=== PATIENT | female | born 1930 | race Caucasian/White ===

== ENCOUNTER → 2016-09-01 | Outpatient (CLI) | payer MEDICARE, OTHER ==
[~2016-09-01] MED LIST: ASPIRIN 32325 MG/TAB PO; HCTZ 25MG25 MG PO
== END ==
LOC: LAB 14:43
DX: N30.00 Acute cystitis without hematuria (principal)

== ENCOUNTER → 2016-09-03 | Outpatient (CLI) | payer MEDICARE, OTHER | LOC: LAB 14:05 | DX: N30.00 Acute cystitis without hematuria (principal) ==

== ENCOUNTER → 2016-09-20 | Outpatient (CLI) | payer MEDICARE, OTHER | LOC: LAB 12:01 | DX: N30.00 Acute cystitis without hematuria (principal); B96.20 Unspecified Escherichia coli [E. coli] as the cause of diseases classified elsewhere ==

== ENCOUNTER → 2016-10-03 | Outpatient (CLI) | payer MEDICARE, OTHER | LOC: LAB 13:42 | DX: N30.00 Acute cystitis without hematuria (principal) ==

== ENCOUNTER → 2016-10-06 | Outpatient (CLI) | payer MEDICARE, OTHER | LOC: LAB 15:23 | DX: R35.0 Frequency of micturition (principal) ==

== ENCOUNTER → 2016-10-10 | Outpatient (CLI) | payer MEDICARE, OTHER ==
[2016-10-10 15:43] VITALS: BP 193/79
== END ==
LOC: AMSURD 15:08
DX: R35.0 Frequency of micturition (principal); R39.89 Other symptoms and signs involving the genitourinary system; R10.2 Pelvic and perineal pain

== ENCOUNTER → 2017-02-27 | Outpatient (CLI) | payer MEDICARE, OTHER ==
[2016-10-10 15:43] VITALS: BP 193/79
== END ==
LOC: LAB 12:03
DX: N30.01 Acute cystitis with hematuria (principal)

== ENCOUNTER → 2018-05-18 | Outpatient (CLI) | payer MEDICARE, OTHER ==
[2016-10-10 15:43] VITALS: BP 193/79
[2018-05-18 15:05] LABS: EOS # 0.1 (0.04-0.40); EOS % 1.5 % (1.0-5.0); HEMATOCRIT 39.6 % (37.0-47.0); HEMOGLOBIN 13.1 g/dL (12.5-16.0); LYMPH# 2.3 (1.50-4.00); MEAN CELL VOLUME 95 fl (78-100); MEAN CORPUSCULAR HEMOGLOBIN 31 pg (27-31); MEAN CORPUSCULAR HGB CONC 33 g/dL (33-37); MEAN PLATELET VOLUME 11.5 fl (7.4-10.4); NEU # 6.2 (1.40-6.50); PLATELET COUNT 150 K/mm3 (130-400); RED BLOOD COUNT 4.17 M/mm3 (4.10-5.30); RED CELL DISTRIBUTION WIDTH 12.7 % (11.5-14.5); WHITE BLOOD COUNT 9.6 K/mm3 (4.8-10.8)
[2018-05-18 15:50] LABS: ALBUMIN 3.9 g/dL (3.5-5.0); CALCIUM 8.8 mg/dL (8.4-10.2); POTASSIUM 3.9 mmol/L (3.6-5.0); TOTAL BILIRUBIN 0.5 mg/dL (0.2-1.3); TOTAL PROTEIN 7.2 g/dL (6.3-8.2)
== END ==
LOC: LAB 14:39
PROVIDERS: Family Medicine
DX: Z01.419 Encounter for gynecological examination (general) (routine) without abnormal findings (principal); R73.9 Hyperglycemia, unspecified; E03.9 Hypothyroidism, unspecified; R30.0 Dysuria

== ENCOUNTER 2018-06-16 10:53 | Emergency (ER) | payer MEDICARE, OTHER ==
[2018-06-16] MEDS ORDERED: CRANBERRY200 MG PO (11:01)
[2018-06-16] MEDS ORDERED: PRILOSEC 20MG20 MG PO (11:01)
[2018-06-16 11:53] LABS: BASO # 0.1 (0.02-0.10); EOS # 0.6 (0.04-0.40); EOS % 6.9 % (1.0-5.0); HEMATOCRIT 36.7 % (37.0-47.0); HEMOGLOBIN 12.2 g/dL (12.5-16.0); LYMPH# 2.1 (1.50-4.00); MEAN CELL VOLUME 93 fl (78-100); MEAN CORPUSCULAR HEMOGLOBIN 31 pg (27-31); MEAN CORPUSCULAR HGB CONC 33 g/dL (33-37); MEAN PLATELET VOLUME 11.7 fl (7.4-10.4); MONO # 0.8 (0.20-0.80); PLATELET COUNT 184 K/mm3 (130-400); RED BLOOD COUNT 3.94 M/mm3 (4.10-5.30); RED CELL DISTRIBUTION WIDTH 12.5 % (11.5-14.5); WHITE BLOOD COUNT 8.9 K/mm3 (4.8-10.8)
[2018-06-16 12:03] LABS: ALBUMIN 4.1 g/dL (3.5-5.0); CALCIUM 9.4 mg/dL (8.4-10.2); POTASSIUM 4.2 mmol/L (3.6-5.0); TOTAL BILIRUBIN 0.4 mg/dL (0.2-1.3); TOTAL PROTEIN 7.1 g/dL (6.3-8.2)
[2018-06-16 12:16] LABS: URINE APPEARANCE CLEAR; URINE BILIRUBIN NEGATIVE (NEGATIVE); URINE BLOOD TRACE (NEGATIVE); URINE COLOR YELLOW; URINE GLUCOSE NEGATIVE (NEGATIVE); URINE KETONE NEGATIVE (NEGATIVE); URINE LEUKOCYTE ESTERASE NEGATIVE (NEGATIVE); URINE NITRATE NEGATIVE (NEGATIVE); URINE PROTEIN(semi-quant) NEGATIVE (NEGATIVE); URINE UROBILINOGEN NORMAL (NORMAL)
[2018-06-16 15:20] VITALS: BP 129/69
== END 2018-06-16 15:20 | disposition home or self-care (01) ==
LOC: ED 10:53
PROVIDERS: Family Medicine
DX: E86.9 Volume depletion, unspecified (principal); R63.0 Anorexia; N95.2 Postmenopausal atrophic vaginitis; T38.5X6A Underdosing of other estrogens and progestogens, initial encounter; I10 Essential (primary) hypertension; E03.9 Hypothyroidism, unspecified; Z79.82 Long term (current) use of aspirin; M31.6 Other giant cell arteritis
CPT/HCPCS: J7030

== ENCOUNTER → 2018-10-02 | Outpatient (CLI) | payer MEDICARE, OTHER ==
[~2018-10-02] MED LIST changes: +CRANBERRY200 MG PO; +PRILOSEC 20MG20 MG PO
[2018-10-02 12:38] LABS: URINE APPEARANCE CLEAR; URINE COLOR YELLOW
[2018-10-02 12:39] LABS: URINE BILIRUBIN NEGATIVE (NEGATIVE); URINE BLOOD NEGATIVE (NEGATIVE); URINE GLUCOSE NEGATIVE (NEGATIVE); URINE KETONE NEGATIVE (NEGATIVE); URINE LEUKOCYTE ESTERASE NEGATIVE (NEGATIVE); URINE NITRATE NEGATIVE (NEGATIVE); URINE PROTEIN(semi-quant) TRACE mg/dL (NEGATIVE); URINE UROBILINOGEN NORMAL (NORMAL)
== END ==
LOC: LAB 11:37
PROVIDERS: Family Medicine
DX: N39.0 Urinary tract infection, site not specified (principal)

== ENCOUNTER 2018-10-12 14:35 | Outpatient (RCR) | payer MEDICARE | END 2018-10-12 15:00 | disposition home or self-care (01) | LOC: PT 14:35 | DX: R53.81 Other malaise (principal); G62.9 Polyneuropathy, unspecified ==

== ENCOUNTER → 2018-12-21 | Outpatient (CLI) | payer MEDICARE ==
[2018-12-21 16:16] LABS: EOS # 0.2 (0.04-0.40); EOS % 1.9 % (1.0-5.0); LYMPH# 2.3 (1.50-4.00); MEAN CELL VOLUME 95 fl (78-100); MEAN CORPUSCULAR HEMOGLOBIN 29 pg (27-31); MEAN CORPUSCULAR HGB CONC 31 g/dL (33-37); MONO # 0.8 (0.20-0.80); NEU # 4.5 (1.40-6.50); PLATELET COUNT 240 K/mm3 (130-400); RED BLOOD COUNT 4.12 M/mm3 (4.10-5.30); RED CELL DISTRIBUTION WIDTH 14.4 % (11.5-14.5); WHITE BLOOD COUNT 7.8 K/mm3 (4.8-10.8)
[2018-12-21 16:37] LABS: MEAN PLATELET VOLUME 12.1 fl (7.4-10.4)
[2018-12-21 16:42] LABS: ALBUMIN 3.8 g/dL (3.4-4.8); CALCIUM 9.3 mg/dL (8.3-10.5); POTASSIUM 3.9 mmol/L (3.5-5.1); TOTAL BILIRUBIN 0.5 mg/dL (0.2-1.2); TOTAL PROTEIN 7.1 g/dL (6.2-8.1); TROPONIN-I 0.03 ng/mL (<0.030)
[2018-12-21 17:15] LABS: D-DIMER 4.22 mg/L FEU (0.15-0.50)
== END ==
LOC: RAD 15:40 → LAB 15:40
PROVIDERS: Family Medicine
DX: I51.7 Cardiomegaly (principal); J90 Pleural effusion, not elsewhere classified; R06.09 Other forms of dyspnea
CPT/HCPCS: Q9967

== ENCOUNTER 2018-12-29 10:41 | Emergency (ER) | payer MEDICARE ==
[~2018-12-29] VITALS: Wt 89.9 kg
[2018-12-29] MEDS ORDERED: KEFLEX250 M1 PO (10:52)
[2018-12-29] MEDS ORDERED: FUROSEMIDE20 MG PO (10:52)
[2018-12-29 11:33] LABS: EOS # 0.2 (0.04-0.40); EOS % 2.1 % (1.0-5.0); HEMATOCRIT 37.2 % (37.0-47.0); HEMOGLOBIN 11.8 g/dL (12.5-16.0); LYMPH# 1.7 (1.50-4.00); MEAN CELL VOLUME 94 fl (78-100); MEAN CORPUSCULAR HEMOGLOBIN 30 pg (27-31); MEAN CORPUSCULAR HGB CONC 32 g/dL (33-37); MONO # 0.7 (0.20-0.80); NEU # 4.9 (1.40-6.50); PLATELET COUNT 203 K/mm3 (130-400); RED BLOOD COUNT 3.96 M/mm3 (4.10-5.30); RED CELL DISTRIBUTION WIDTH 14.1 % (11.5-14.5); WHITE BLOOD COUNT 7.6 K/mm3 (4.8-10.8)
[2018-12-29 11:35] LABS: MEAN PLATELET VOLUME 12.4 fl (7.4-10.4)
[2018-12-29 11:46] LABS: CALCIUM 9.3 mg/dL (8.3-10.5); POTASSIUM 3.8 mmol/L (3.5-5.1)
[2018-12-29 13:32] VITALS: BP 168/96
== END 2018-12-29 13:33 | disposition home or self-care (01) ==
LOC: ED 10:41
PROVIDERS: Family Medicine
DX: K72.90 Hepatic failure, unspecified without coma (principal); R16.0 Hepatomegaly, not elsewhere classified; E03.9 Hypothyroidism, unspecified; I10 Essential (primary) hypertension; M31.6 Other giant cell arteritis; Z90.89 Acquired absence of other organs; Z88.8 Allergy status to other drugs, medicaments and biological substances; Z79.82 Long term (current) use of aspirin

== ENCOUNTER 2019-01-31 16:05 | Emergency (ER) | payer MEDICARE ==
[~2019-01-31] VITALS: Ht 154.9 cm; Wt 84.1 kg
[~2019-01-31 16:05] MED LIST changes: -ALDACTONE 25MG25 MG PO; -ALTACE1.25 MG PO; +ASPIRIN 32325 MG/TAB PO; -ASPIRIN E.C. 8181 MG PO; -ATORVASTATIN CA20 MG PO; -CLOPIDOGREL PO; -COREG 3.123.125 MG/T PO; -ESTRACE0.1 MG/GM VG
[2019-01-31 17:13] LABS: EOS # 0.3 (0.04-0.40); EOS % 2.7 % (1.0-5.0); HEMATOCRIT 36.7 % (37.0-47.0); HEMOGLOBIN 11.8 g/dL (12.5-16.0); LYMPH# 2.2 (1.50-4.00); MEAN CELL VOLUME 93 fl (78-100); MEAN CORPUSCULAR HEMOGLOBIN 30 pg (27-31); MEAN CORPUSCULAR HGB CONC 32 g/dL (33-37); MONO # 0.8 (0.20-0.80); NEU # 5.7 (1.40-6.50); PLATELET COUNT 177 K/mm3 (130-400); RED BLOOD COUNT 3.96 M/mm3 (4.10-5.30); RED CELL DISTRIBUTION WIDTH 13.5 % (11.5-14.5); WHITE BLOOD COUNT 9.1 K/mm3 (4.8-10.8)
[2019-01-31 17:14] LABS: MEAN PLATELET VOLUME 12.8 fl (7.4-10.4)
[2019-01-31 17:16] LABS: ALBUMIN 3.9 g/dL (3.4-4.8)
[2019-01-31 17:17] LABS: POTASSIUM 4.6 mmol/L (3.5-5.1); SODIUM 138 mmol/L (136-145)
[2019-01-31 17:18] LABS: CALCIUM 9.7 mg/dL (8.3-10.5)
[2019-01-31 17:19] LABS: GLUCOSE 116 mg/dL (65-105); TOTAL PROTEIN 7.5 g/dL (6.2-8.1)
[2019-01-31 17:20] LABS: CARBON DIOXIDE 24 mmol/L (23-31)
[2019-01-31 17:21] LABS: TOTAL BILIRUBIN 0.5 mg/dL (0.2-1.2)
[2019-01-31 17:24] LABS: AST-SGOT 18 U/L (5-34)
[2019-01-31 17:25] LABS: ALT/SGPT 10 U/L (0-55)
[2019-01-31] MEDS ORDERED: COREG 3.123.125 MG/T PO (17:38)
[2019-01-31] MEDS ORDERED: ESTRACE0.1 MG/GM VG (17:38)
[2019-01-31] MEDS ORDERED: CLOPIDOGREL PO (17:39)
[2019-01-31] MEDS ORDERED: ATORVASTATIN CA20 MG PO (17:39)
[2019-01-31] MEDS ORDERED: ALTACE1.25 MG PO (17:39)
[2019-01-31] MEDS ORDERED: ALDACTONE 25MG25 MG PO (17:40)
[2019-01-31 17:42] LABS: TROPONIN-I < 0.03 ng/mL (<0.030)
[2019-01-31 19:47] VITALS: BP 121/50
== END 2019-01-31 19:48 | disposition home or self-care (01) ==
LOC: ED 16:05
PROVIDERS: Nurse Practitioner Family
DX: I25.10 Atherosclerotic heart disease of native coronary artery without angina pectoris (principal); N28.9 Disorder of kidney and ureter, unspecified; I95.9 Hypotension, unspecified; Z95.5 Presence of coronary angioplasty implant and graft; Z79.02 Long term (current) use of antithrombotics/antiplatelets

== ENCOUNTER → 2019-01-31 | Outpatient (CLI) | payer MEDICARE ==
[~2019-01-31] MED LIST changes: +ALDACTONE 25MG25 MG PO; +ALTACE1.25 MG PO; -ASPIRIN 32325 MG/TAB PO; +ASPIRIN E.C. 8181 MG PO; +ATORVASTATIN CA20 MG PO; +CLOPIDOGREL PO; +COREG 3.123.125 MG/T PO; +ESTRACE0.1 MG/GM VG; +FUROSEMIDE20 MG PO; +KEFLEX250 M1 PO
== END ==
LOC: AMSURD 16:00
DX: I25.10 Atherosclerotic heart disease of native coronary artery without angina pectoris (principal)

== ENCOUNTER 2019-02-03 13:57 | Emergency (ER) | payer MEDICARE ==
[~2019-02-03] VITALS: Ht 154.9 cm; Wt 84.1 kg
[~2019-02-03 13:57] MED LIST changes: +ALDACTONE 25MG25 MG PO; +ALTACE1.25 MG PO; +ATORVASTATIN CA20 MG PO; +CLOPIDOGREL PO; +COREG 3.123.125 MG/T PO; +ESTRACE0.1 MG/GM VG
[2019-02-03 15:19] LABS: POTASSIUM 4.5 mmol/L (3.5-5.1)
[2019-02-03 15:20] LABS: CALCIUM 9.4 mg/dL (8.3-10.5)
[2019-02-03 16:10] VITALS: BP 108/52
== END 2019-02-03 16:10 | disposition home or self-care (01) ==
LOC: ED 13:57
PROVIDERS: Family Medicine
DX: E86.9 Volume depletion, unspecified (principal); I25.10 Atherosclerotic heart disease of native coronary artery without angina pectoris; I10 Essential (primary) hypertension; Z79.02 Long term (current) use of antithrombotics/antiplatelets; Z95.5 Presence of coronary angioplasty implant and graft; Z79.82 Long term (current) use of aspirin

== ENCOUNTER 2019-02-13 13:28 | Emergency (ER) | payer MEDICARE ==
[~2019-02-13] VITALS: Ht 154.9 cm; Wt 85.9 kg
[~2019-02-13 13:28] MED LIST changes: -ASPIRIN 32325 MG/TAB PO; +ASPIRIN E.C. 8181 MG PO
[2019-02-13 13:54] LABS: EOS # 0.3 (0.04-0.40); EOS % 2.9 % (1.0-5.0); HEMATOCRIT 39.1 % (37.0-47.0); HEMOGLOBIN 12.6 g/dL (12.5-16.0); LYMPH# 1.9 (1.50-4.00); MEAN CELL VOLUME 93 fl (78-100); MEAN CORPUSCULAR HEMOGLOBIN 30 pg (27-31); MEAN CORPUSCULAR HGB CONC 32 g/dL (33-37); MONO # 0.9 (0.20-0.80); NEU # 5.5 (1.40-6.50); PLATELET COUNT 158 K/mm3 (130-400); RED BLOOD COUNT 4.22 M/mm3 (4.10-5.30); RED CELL DISTRIBUTION WIDTH 13.5 % (11.5-14.5); WHITE BLOOD COUNT 8.5 K/mm3 (4.8-10.8)
[2019-02-13 13:55] LABS: MEAN PLATELET VOLUME 12.2 fl (7.4-10.4)
[2019-02-13 14:04] LABS: ALBUMIN 4.1 g/dL (3.4-4.8); POTASSIUM 4.6 mmol/L (3.5-5.1)
[2019-02-13 14:07] LABS: TOTAL PROTEIN 7.5 g/dL (6.2-8.1)
[2019-02-13 14:09] LABS: TOTAL BILIRUBIN 0.6 mg/dL (0.2-1.2)
[2019-02-13 14:19] LABS: CKMB ISOENZYME 0.6 ng/mL (0.0-3.5)
[2019-02-13 14:47] LABS: URINE APPEARANCE CLEAR; URINE BILIRUBIN NEGATIVE (NEGATIVE); URINE BLOOD NEGATIVE (NEGATIVE); URINE COLOR YELLOW; URINE GLUCOSE NEGATIVE (NEGATIVE); URINE KETONE NEGATIVE (NEGATIVE); URINE LEUKOCYTE ESTERASE NEGATIVE (NEGATIVE); URINE NITRATE NEGATIVE (NEGATIVE); URINE PROTEIN(semi-quant) NEGATIVE (NEGATIVE); URINE UROBILINOGEN NORMAL (NORMAL)
[2019-02-13 16:55] VITALS: BP 115/59
== END 2019-02-13 17:01 | disposition home or self-care (01) ==
LOC: ED 13:28
PROVIDERS: Physician Assistant
DX: I25.10 Atherosclerotic heart disease of native coronary artery without angina pectoris (principal); I49.3 Ventricular premature depolarization; I11.0 Hypertensive heart disease with heart failure; I50.9 Heart failure, unspecified; K21.9 Gastro-esophageal reflux disease without esophagitis; Z95.5 Presence of coronary angioplasty implant and graft; Z79.02 Long term (current) use of antithrombotics/antiplatelets

== ENCOUNTER → 2019-04-12 | Outpatient (CLI) | payer MEDICARE ==
[~2019-04-12] VITALS: Ht 154.9 cm; Wt 84.8 kg
[2019-04-12 15:11] LABS: EOS # 0.3 (0.04-0.40); EOS % 4.2 % (1.0-5.0); HEMATOCRIT 35.8 % (37.0-47.0); HEMOGLOBIN 11.6 g/dL (12.5-16.0); LYMPH# 1.4 (1.50-4.00); MEAN CELL VOLUME 95 fl (78-100); MEAN CORPUSCULAR HEMOGLOBIN 31 pg (27-31); MEAN CORPUSCULAR HGB CONC 32 g/dL (33-37); MONO # 0.9 (0.20-0.80); NEU # 5.4 (1.40-6.50); PLATELET COUNT 160 K/mm3 (130-400); RED BLOOD COUNT 3.78 M/mm3 (4.10-5.30); WHITE BLOOD COUNT 8.1 K/mm3 (4.8-10.8)
[2019-04-12 15:17] LABS: MEAN PLATELET VOLUME 12.2 fl (7.4-10.4)
[2019-04-12 15:20] VITALS: BP 137/49
[2019-04-12 15:22] LABS: POTASSIUM 3.9 mmol/L (3.5-5.1)
[2019-04-12 15:23] LABS: CALCIUM 9.5 mg/dL (8.3-10.5)
[2019-04-12 15:24] LABS: TOTAL PROTEIN 7.5 g/dL (6.2-8.1)
[2019-04-12 15:26] LABS: TOTAL BILIRUBIN 0.6 mg/dL (0.2-1.2)
[2019-04-12 15:47] LABS: D-DIMER 1.72 mg/L FEU (0.15-0.50)
== END ==
LOC: AMSURD 14:15
PROVIDERS: Internal Medicine Cardiovascular Disease
DX: I51.7 Cardiomegaly (principal); I25.5 Ischemic cardiomyopathy; I42.0 Dilated cardiomyopathy

== ENCOUNTER 2019-04-17 09:32 | Outpatient (RCR) | payer MEDICARE ==
[2019-04-12 15:20] VITALS: BP 137/49
== END 2019-05-16 15:32 | disposition still patient (30) ==
LOC: OPPGERO 09:32
DX: F41.9 Anxiety disorder, unspecified (principal); I25.10 Atherosclerotic heart disease of native coronary artery without angina pectoris; K21.9 Gastro-esophageal reflux disease without esophagitis; E78.5 Hyperlipidemia, unspecified; I10 Essential (primary) hypertension; Z95.5 Presence of coronary angioplasty implant and graft; E03.9 Hypothyroidism, unspecified; M81.0 Age-related osteoporosis without current pathological fracture; G62.9 Polyneuropathy, unspecified; Z79.1 Long term (current) use of non-steroidal anti-inflammatories (NSAID); Z79.02 Long term (current) use of antithrombotics/antiplatelets

== ENCOUNTER 2019-04-26 13:00 | Outpatient (RCR) | payer MEDICARE | END 2019-05-05 | disposition still patient (30) | LOC: CARDREHAB | DX: Z48.812 Encounter for surgical aftercare following surgery on the circulatory system (principal); Z95.5 Presence of coronary angioplasty implant and graft; I08.0 Rheumatic disorders of both mitral and aortic valves ==

== ENCOUNTER 2019-05-22 13:15 | Outpatient (RCR) | payer MEDICARE ==
[2019-04-12 15:20] VITALS: BP 137/49
== END 2019-08-11 | disposition home or self-care (01) ==
LOC: CARDREHAB
DX: Z48.812 Encounter for surgical aftercare following surgery on the circulatory system (principal); Z95.5 Presence of coronary angioplasty implant and graft; I08.0 Rheumatic disorders of both mitral and aortic valves

== ENCOUNTER → 2020-02-03 | Outpatient (CLI) | payer MEDICARE ==
[2019-04-12 15:20] VITALS: BP 137/49
== END ==
LOC: LAB 13:33
DX: I25.10 Atherosclerotic heart disease of native coronary artery without angina pectoris (principal)

== ENCOUNTER → 2020-04-03 | Outpatient (CLI) | payer MEDICARE ==
[2019-04-12 15:20] VITALS: BP 137/49
[2020-04-03 13:49] LABS: POTASSIUM 4.4 mmol/L (3.5-5.1)
[2020-04-03 13:51] LABS: CALCIUM 9.5 mg/dL (8.3-10.5)
== END ==
LOC: LAB 13:23
PROVIDERS: Internal Medicine Cardiovascular Disease
DX: I11.0 Hypertensive heart disease with heart failure (principal); I50.22 Chronic systolic (congestive) heart failure; E78.2 Mixed hyperlipidemia

== ENCOUNTER → 2020-04-29 | Outpatient (CLI) | payer MEDICARE ==
[2019-04-12 15:20] VITALS: BP 137/49
[~2020-04-29] MED LIST changes: +BETAMETHASONE D15 GM TP; +SENTRY SENIOR1 TAB PO; +TROSPIUM CHLORI20 MG PO
== END ==
LOC: LAB 16:28
DX: R30.0 Dysuria (principal)

== ENCOUNTER 2020-08-18 11:52 | Emergency (ER) | payer MEDICARE ==
[~2020-08-18 11:52] MED LIST changes: -BETAMETHASONE D15 GM TP; -SENTRY SENIOR1 TAB PO; -TROSPIUM CHLORI20 MG PO
[2020-08-18 12:49] LABS: HEMATOCRIT 34.5 % (37.0-47.0); MEAN CELL VOLUME 96 fl (78-100); MEAN CORPUSCULAR HEMOGLOBIN 31 pg (27-31); MEAN CORPUSCULAR HGB CONC 32 g/dL (33-37); MEAN PLATELET VOLUME 11.9 fl (7.4-10.4); PLATELET COUNT 105 K/mm3 (130-400); RED BLOOD COUNT 3.58 M/mm3 (4.10-5.30); RED CELL DISTRIBUTION WIDTH 13.2 % (11.5-14.5); WHITE BLOOD COUNT 6.5 K/mm3 (4.8-10.8)
[2020-08-18 13:01] LABS: ALBUMIN 3.7 g/dL (3.4-4.8); POTASSIUM 4.4 mmol/L (3.5-5.1); SODIUM 139 mmol/L (136-145)
[2020-08-18 13:03] LABS: CALCIUM 8.7 mg/dL (8.3-10.5)
[2020-08-18 13:04] LABS: GLUCOSE 140 mg/dL (65-105); LYMPHOCYTE 6 % (20-51); MONOCYTE 5 % (3-10); NEUTROPHILS 88 % (42-75); TOTAL PROTEIN 6.9 g/dL (6.2-8.1)
[2020-08-18 13:05] LABS: CARBON DIOXIDE 23 mmol/L (23-31)
[2020-08-18 13:06] LABS: TOTAL BILIRUBIN 0.7 mg/dL (0.2-1.2)
[2020-08-18 13:09] LABS: AST-SGOT 17 U/L (5-34)
[2020-08-18 13:10] LABS: ALT/SGPT 15 U/L (0-55)
[2020-08-18 13:11] LABS: LIPASE 7 U/L (8-78)
[2020-08-18 13:17] LABS: TROPONIN-I 0.03 ng/mL (<0.030)
[2020-08-18 15:04] VITALS: BP 123/50
[2020-08-18] MEDS ORDERED: SENTRY SENIOR1 TAB PO (17:13)
[2020-08-18] MEDS ORDERED: TROSPIUM CHLORI20 MG PO (17:14)
[2020-08-18] MEDS ORDERED: BETAMETHASONE D15 GM TP (17:15)
[2020-08-18 17:53] LABS: PH-URINE 6.5 (5.0 - 8.0); URINE APPEARANCE CLEAR; URINE BILIRUBIN NEGATIVE (NEGATIVE); URINE BLOOD TRACE (NEGATIVE); URINE COLOR YELLOW; URINE GLUCOSE NEGATIVE (NEGATIVE); URINE KETONE NEGATIVE (NEGATIVE); URINE LEUKOCYTE ESTERASE NEGATIVE (NEGATIVE); URINE NITRATE NEGATIVE (NEGATIVE); URINE PROTEIN(semi-quant) 1+ mg/dL (NEGATIVE); URINE UROBILINOGEN NORMAL (NORMAL)
== END 2020-08-18 15:05 | disposition other institution (70) ==
LOC: ED 11:52
PROVIDERS: Nurse Practitioner Family
DX: U07.1 COVID-19 (principal); L53.9 Erythematous condition, unspecified; I25.10 Atherosclerotic heart disease of native coronary artery without angina pectoris; I50.9 Heart failure, unspecified; I10 Essential (primary) hypertension; K21.9 Gastro-esophageal reflux disease without esophagitis; E78.5 Hyperlipidemia, unspecified; E66.9 Obesity, unspecified; Z95.0 Presence of cardiac pacemaker; Z79.82 Long term (current) use of aspirin
CPT/HCPCS: J2405; J7120

== ENCOUNTER 2020-08-18 14:53 | Inpatient (IN) | payer MEDICARE ==
[~2020-08-18] VITALS: Ht 154.9 cm; Wt 93.5 kg
[2020-08-18] MEDS ORDERED: SENTRY SENIOR1 TAB PO (17:13)
[2020-08-18] MEDS ORDERED: TROSPIUM CHLORI20 MG PO (17:14)
[2020-08-18] MEDS ORDERED: BETAMETHASONE D15 GM TP (17:15)
[2020-08-18 22:14] VITALS: BP 126/65
[2020-08-19 02:07] VITALS: BP 150/69
[2020-08-19 05:57] VITALS: BP 144/72
[2020-08-19 07:24] LABS: HEMATOCRIT 29.3 % (37.0-47.0); HEMOGLOBIN 9.2 g/dL (12.5-16.0); MEAN CELL VOLUME 98 fl (78-100); MEAN CORPUSCULAR HEMOGLOBIN 31 pg (27-31); MEAN CORPUSCULAR HGB CONC 31 g/dL (33-37); MEAN PLATELET VOLUME 11.4 fl (7.4-10.4); PLATELET COUNT 90 K/mm3 (130-400); RED CELL DISTRIBUTION WIDTH 13.3 % (11.5-14.5); WHITE BLOOD COUNT 4.8 K/mm3 (4.8-10.8)
[2020-08-19 07:29] LABS: POTASSIUM 4.4 mmol/L (3.5-5.1)
[2020-08-19 07:30] LABS: CALCIUM 8.1 mg/dL (8.3-10.5)
[2020-08-19 07:32] LABS: TOTAL PROTEIN 5.6 g/dL (6.2-8.1)
[2020-08-19 07:33] LABS: TOTAL BILIRUBIN 0.5 mg/dL (0.2-1.2)
[2020-08-19 07:56] LABS: LYMPHOCYTE 15 % (20-51); MONOCYTE 18 % (3-10); NEUTROPHILS 67 % (42-75)
[2020-08-19 08:20] LABS: ERYTHROCYTE SEDIMENTATION RATE 37 mm/hr (0-30)
[2020-08-19 09:17] VITALS: BP 152/66
[2020-08-19 14:32] VITALS: BP 125/67
[2020-08-19 17:04] VITALS: BP 137/74
[2020-08-19 22:17] VITALS: BP 119/65
[2020-08-20 01:52] VITALS: BP 146/70
[2020-08-20 05:17] VITALS: BP 138/80
[2020-08-20 07:47] LABS: CALCIUM 8.2 mg/dL (8.3-10.5); POTASSIUM 3.9 mmol/L (3.5-5.1)
[2020-08-20 07:53] LABS: HEMATOCRIT 29.4 % (37.0-47.0); HEMOGLOBIN 9.2 g/dL (12.5-16.0); MEAN CELL VOLUME 97 fl (78-100); MEAN CORPUSCULAR HEMOGLOBIN 30 pg (27-31); MEAN CORPUSCULAR HGB CONC 31 g/dL (33-37); MEAN PLATELET VOLUME 11.8 fl (7.4-10.4); PLATELET COUNT 91 K/mm3 (130-400); RED BLOOD COUNT 3.03 M/mm3 (4.10-5.30); RED CELL DISTRIBUTION WIDTH 13.2 % (11.5-14.5)
[2020-08-20 07:54] LABS: LYMPHOCYTE 28 % (20-51); MONOCYTE 10 % (3-10); NEUTROPHILS 61 % (42-75)
[2020-08-20 10:20] VITALS: BP 120/74
== END 2020-08-20 10:11 | disposition home health service (06) | DRG 866 ==
LOC: MED/SURG 14:53
PROVIDERS: Physician Assistant; ADMIT Nurse Practitioner Family
DX: T88.1XXA Other complications following immunization, not elsewhere classified, initial encounter (principal); N39.0 Urinary tract infection, site not specified; I50.9 Heart failure, unspecified; I25.10 Atherosclerotic heart disease of native coronary artery without angina pectoris; I11.0 Hypertensive heart disease with heart failure; Z86.16 Personal history of COVID-19; K21.9 Gastro-esophageal reflux disease without esophagitis; N28.9 Disorder of kidney and ureter, unspecified; M31.6 Other giant cell arteritis; R53.1 Weakness; E03.9 Hypothyroidism, unspecified; G62.9 Polyneuropathy, unspecified; E66.9 Obesity, unspecified; L27.0 Generalized skin eruption due to drugs and medicaments taken internally; E78.5 Hyperlipidemia, unspecified; Z90.710 Acquired absence of both cervix and uterus; Z95.5 Presence of coronary angioplasty implant and graft; Z79.82 Long term (current) use of aspirin
CPT/HCPCS: J0456; J0696; J1650; J7050; J7120

== ENCOUNTER → 2020-08-26 | Outpatient (CLI) | payer MEDICARE ==
[2020-08-20 10:20] VITALS: BP 120/74
[~2020-08-26] MED LIST changes: +BETAMETHASONE D15 GM TP; +SENTRY SENIOR1 TAB PO; +TROSPIUM CHLORI20 MG PO
[2020-08-26 11:29] LABS: ALBUMIN 3.8 g/dL (3.4-4.8); POTASSIUM 4.8 mmol/L (3.5-5.1)
[2020-08-26 11:30] LABS: EOS # 0.2 (0.04-0.40); EOS % 2.3 % (1.0-5.0); HEMATOCRIT 34.5 % (37.0-47.0); HEMOGLOBIN 10.6 g/dL (12.5-16.0); LYMPH# 1.8 (1.50-4.00); MEAN CELL VOLUME 97 fl (78-100); MEAN CORPUSCULAR HEMOGLOBIN 30 pg (27-31); MEAN CORPUSCULAR HGB CONC 31 g/dL (33-37); MEAN PLATELET VOLUME 11.3 fl (7.4-10.4); MONO # 0.7 (0.20-0.80); NEU # 6.1 (1.40-6.50); PLATELET COUNT 173 K/mm3 (130-400); RED BLOOD COUNT 3.56 M/mm3 (4.10-5.30); RED CELL DISTRIBUTION WIDTH 13.2 % (11.5-14.5)
[2020-08-26 11:31] LABS: CALCIUM 9.2 mg/dL (8.3-10.5)
[2020-08-26 11:34] LABS: TOTAL BILIRUBIN 0.5 mg/dL (0.2-1.2)
== END ==
LOC: LAB 11:00
PROVIDERS: Family Medicine
DX: L03.114 Cellulitis of left upper limb (principal); I10 Essential (primary) hypertension

== ENCOUNTER → 2020-12-11 | Outpatient (CLI) | payer MEDICARE ==
[~2020-12-11] MED LIST changes: +BACTRIM 400 MG-1 TA1 PO; +BISOPROLOL FUMA10 M1 PO; +SULFAMETHOXAZO1 EACH PO
== END ==
LOC: RAD 12:43
DX: I25.10 Atherosclerotic heart disease of native coronary artery without angina pectoris (principal)